=== PATIENT | female | born 1960 | race Caucasian/White ===

== ENCOUNTER 2016-06-29 08:02 | Day surgery (SDC) | payer OTHER ==
--- NOTE | 2016-06-22 08:13 | PREOPERATIVE H&P ---
History of Present Illness (Eusebio Koo M.D.; 06/09/2016 5:19 PM) The patient is a 56 year old female who presents with a complaint of bleeding. The onset of the bleeding has been gradual and has been occurring in an intermittent pattern for years. The bleeding is described as spotting (last "regular" cycle about 7 years ago, has had menses intermittently since then but intermittent spotting through out). The bleeding is described as being located in the vagina. The bleeding was precipitated by nothing (spontaneous). The symptoms have been associated with hot flashes, while the symptoms have not been associated with bloody stools, hematemesis, hemoptysis, use of anti- coagulants, use of aspirin, cramps or pelvic pain. The patient denies the use of hormone replacement therapy, Tamoxifen or steroids. Previous diagnostic tests have included ultrasound (decrease in uterine volume but 2 small leiomyoma and endometrial stripe 19mm) and PAP smear (04/2015 PAP and HPV negative). Additional reasons for visit: Consultation is described as the following: The patient is seen in consultation for Gissel Lau MD. The patient is seen in the office. Problem List/Past Medical (Eusebio Koo M.D.; 06/09/2016 4:46 PM) Allergic rhinitis (477.9) (J30.9) Atrophic vaginitis (N95.2) Allergies (Jaja Hunt RN; 06/09/2016 4:23 PM) NKA105/15/2011 Family History (Eusebio Koo M.D.; 06/09/2016 4:47 PM) Brother Frank; glucose intolerance Brother 2 Lalit, Father DM II, HTN, hx TOB, skin CA, hearing loss: wears aides Brother 3 Francis Mother PVD, former smoker, skin CA: BCC. Cervical cancer Paternal Grandmother Breast cancer. Social History (Jaja Hunt RN; 06/09/2016 4:24 PM) Alcohol use Occasional alcohol use. Tobacco use Never smoker. None Medication History (Jaja Hunt RN; 06/09/2016 4:25 PM) Fluticasone Propionate (50MCG/ACT Suspension, one Nasal each nostril two times daily, Taken starting 07/06/2014) Active. (Use after nasal saline) Loratadine (10MG Tablet, 1 Oral daily) Active. Krill Oil (1 Oral daily) Active. (pt believes 500 on strength) Magnesium Citrate (100MG Tablet, 2 Oral daily) Active. Vitamin D (400UNIT Tablet, 1 (one) Oral daily) Active. Vitamin C (500MG Tablet Chewable, 1 Oral daily) Active. Medications Reconciled / History (Eusebio Koo M.D.; 06/09/2016 4:48 PM) Pregnancies () 3 Deliveries (Parity) 3 Maternal complications None. Delivery Mode vaginal Past Surgical History (Jaja Hunt, RN; 06/09/2016 4:25 PM) Bilateral Tubal Ligation Tonsillectomy and Adenoidectomy Review of Systems (Eusebio Koo M.D.; 06/09/2016 4:46 PM) General Present- Night Sweats (improving). Neck Not Present- Neck Mass. Respiratory Not Present- Chronic Cough and Hemoptysis. Breast Not Present- Breast Mass. Cardiovascular Not Present- Chest Pain. Gastrointestinal Not Present- Abdominal Pain, Bloating and Bloody Stool. Female Genitourinary Present- vaginal dryness. Not Present- Blood in Urine, Dysuria, Frequency, Hematuria, Incontinence, Urgency, Vaginal Discharge, Vaginal itching/burning and Vulvar itching. Endocrine Present- Hot flashes. Hematology Not Present- Enlarged Lymph Nodes. Vitals (Jaja Hunt RN; 06/09/2016 4:23 PM) 06/09/2016 4:15 PM Weight: 173 lb LMP: (Menopause) BP: 116/78 (Sitting, Left Arm, Standard) Physical Exam (Eusebio Koo M.D.; 06/09/2016 5:14 PM) Female Genitourinary External Genitalia Vulva - Characteristics - Non Tender, No Inflammation. Labia Majora - Characteristics - Bilateral - Normal. Perineum - Normal. Clitoris - Normal. Labia Minora - Characteristics - Left - Normal. Right - Normal. Introitus - Characteristics - Non Tender. Note: has 1 cm polyp at 5:00, present since childbirth, does not bother patient. Discharge - None. Bartholin's Gland - Bilateral - Normal. Urethra - Characteristics - Normal. Urethral Meatus - Characteristics - Normal. Discharge - None. Tabiona Gland - Bilateral - Normal. Speculum & Bimanual Vagina - Vaginal Lesions - None. Vaginal Mucosa - Pale and Rugae. Cervix - Characteristics - No Motion tenderness. Discharge - None. Uterus - Characteristics - Non Tender. Position - Anteverted. Adnexa - Characteristics - Left - Non Tender. Right - Non Tender. Masses - No Adnexal Masses. Bladder - Normal. Rectovaginal Exam - Did not examine. 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 Assessment & Plan (Eusebio Koo M.D.; 06/09/2016 5:19 PM) Postmenopausal bleeding (N95.0) Impression: Discussed with patient, even if not truly menopausal the irregular nature of the bleeding requires endometrial sampling. Discussed potential causes and recommend office biopsy today. Understands that if benign and irregular bleeding or spotting persist the formal D&C is indicated. She agrees to biopsy today. Current Plans Endometrial Biopsy (39677) SPECIMEN HANDLING (22759) Pt Education - Postmenopausal bleeding: Signed by Eusebio Koo M.D. (06/09/2016 5:20 PM) REYNALDO
[2016-06-29 08:30] VITALS: TEMP 96.8
[2016-06-29] MEDS ORDERED: MIDAZOLAM HCL 2 MG/2 ML SYR IV ONE (08:53)
[2016-06-29] MEDS ORDERED: FAMOTIDINE IN SALINE, ISO-OSM 20 MG/50 ML PIGGYBACK IV SCH (08:53)
[2016-06-29] MEDS ORDERED: LIDOCAINE HCL 1% 20 ML VIAL SUBCUT ONE (08:53)
[2016-06-29] MEDS ORDERED: ACETAMINOPHEN 1,000 MG/100 ML VIAL IV SCH (08:53)
[2016-06-29] MEDS ORDERED: LACTATED RINGERS 1,000 ML IV SCH (09:00)
[2016-06-29] MEDS ORDERED: MIDAZOLAM HCL 2 MG/2 ML VIAL ONE (09:07)
[2016-06-29] MEDS ORDERED: FAMOTIDINE IN SALINE, ISO-OSM 50 ML IV ONE (09:07)
[2016-06-29] MEDS ORDERED: ACETAMINOPHEN 1,000 MG/100 ML VIAL IV ONE (09:07)
--- NOTE | 2016-06-29 10:08 | PROCEDURE NOTE: GYN ---
[facility] Procedure - Brief Operative Note Date of procedure: 06/29/16 Pre-Op Diagnosis: Postmenopausal bleeding Procedure: Hysterscopy with Anesthesia Type: Mac Physician: ALBINO ALONSO Estimated Blood Loss: 5 Pathology: sent Sponge and instrument counts: correct Condition: stable Disposition: PACU Narrative: The patient is taken to the operative theater and placed supine upon the operative table. IV sedation is given. She was placed in dorsal lithotomy position using Ian stirrups. She was prepped and draped in the usual sterile fashion. Bimanual examination is performed and the cervix is visualized. Cervix grasped on the anterior lip with a single-tooth tenaculum. Endocervical curettings are obtained and are submitted to pathology. The uterus sounds to 8 cm. The internal cervical os was then sequentially dilated using Hanks dilators. Diagnostic hysteroscope was entered into the uterine cavity. Endometrial polyp was identified. The remainder of the endometrial cavity is atrophic in appearance. Using the Myosure device the polyp is removed and endometrial curettings are obtained and are also submitted to pathology. The instruments are removed, the tenaculum site is hemostatic. The patient is placed supine on the operating table and taken to recovery in good condition. There are no complications.
[2016-06-29] MEDS ORDERED: FENTANYL 100 MCG/2 ML VIAL ONE (10:13)
[2016-06-29] MEDS ORDERED: KETOROLAC TROMETHAMINE 30 MG/ML VIAL ONE (11:20)
[2016-06-29 11:50] VITALS: RESP 16
[2016-06-29 11:57] VITALS: O2SAT 94
[2016-06-29 12:02] VITALS: BP 143/94; PULSE 56
== END 2016-06-29 12:18 | disposition home or self-care (01) ==
LOC: SDS 08:02
PROVIDERS: ATTEND Obstetrics & Gynecology
DX: N95.0 Postmenopausal bleeding (principal)
CPT/HCPCS: J1885; J2250